=== PATIENT | female | born 1965 | race Caucasian/White ===

== ENCOUNTER 2023-04-19 10:23 | Emergency (ER) | payer BC, OTHER ==
[~2023-04-19] VITALS: Ht 167.6 cm; Wt 73.9 kg
[~2023-04-19 10:23] MED LIST: ALPR0.25 PO; DULO30CA2 PO; LEVO50TA12 PO; META800T85 PO; OMEP20CA15 PO; ONDA8TAB6 PO
[2023-04-19] MEDS ORDERED: MECLIZINE HCL 25 MG TABLET PO ONE (11:00)
[2023-04-19 11:10] LABS: BASOPHILS % (AUTO) 0.5 % (0.0-2.0); EOSINOPHILS # (AUTO) 0.1 K/uL (0.0-0.7); EOSINOPHILS % (AUTO) 1.2 % (0.0-6.0); HEMATOCRIT 38 % (33-45); HEMOGLOBIN 13.1 g/dL (11.5-14.8); LYMPHOCYTES # (AUTO) 2.3 K/uL (0.8-4.8); LYMPHOCYTES % (AUTO) 41.3 % (20.0-44.0); MEAN CORPUSCULAR HEMOGLOBIN 32 PG (26.0-33.0); MEAN CORPUSCULAR HGB CONC 34 g/dl (31.0-36.0); MEAN CORPUSCULAR VOLUME 94 fL (82-100); MONOCYTES # (AUTO) 0.5 K/uL (0.1-1.30); MONOCYTES % (AUTO) 9.6 % (2.0-12.0); NEUTROPHILS # (AUTO) 2.6 K/uL (1.8-8.9); NEUTROPHILS % (AUTO) 47.4 % (43.0-81.0); PLATELET COUNT (AUTO) 269 K/uL (150-450); RED BLOOD CELL COUNT(AUTO) 4.09 MIL/uL (4.0-5.2); RED CELL DISTRIBUTION WIDTH 14.1 % (11.5-15.0); WHITE BLOOD COUNT (AUTO) 5.5 K/uL (4.3-11.0)
[2023-04-19] MEDS ORDERED: MECLIZINE HCL 25 MG TABLET ONE (11:12)
[2023-04-19 11:23] LABS: ALANINE AMINOTRANSFERASE 19 U/L (12-78); ALBUMIN 4.1 g/dL (3.4-5.0); ALKALINE PHOSPHATASE 46 U/L (46-116); ASPARTATE AMINOTRANSFERASE 11 U/L (15-37); BILIRUBIN,DIRECT 0.1 mg/dL (0.0-0.2); BILIRUBIN,TOTAL 0.3 mg/dL (0.2-1.0); CALCIUM, SERUM 9.6 mg/dL (8.5-10.1); CARBON DIOXIDE 25 mmol/L (21-32); CHLORIDE 108 mmol/L (98-107); GLUCOSE 96 mg/dL (74-106); LIPASE 28 U/L (16-77); POTASSIUM 4.1 mmol/L (3.5-5.1); SODIUM SERUM 143 mmol/L (136-145); UREA NITROGEN, BLOOD 8 mg/dL (7-18)
[2023-04-19] MEDS ORDERED: LORAZEPAM INJ 2 MG/ML VIAL ONE (11:51)
[2023-04-19] MEDS ORDERED: LORAZEPAM INJ 2 MG/ML VIAL IV ONE (12:00)
[2023-04-19] MEDS ORDERED: MECL-159 PO (13:20)
[2023-04-19] MEDS ORDERED: KETOROLAC TROMETHAMINE INJ 30 MG/ML VIAL IV ONE (13:30)
[2023-04-19] MEDS ORDERED: ONDANSETRON HCL/PF 4 MG/2 ML VIAL ONE (13:35)
[2023-04-19] MEDS ORDERED: KETOROLAC TROMETHAMINE INJ 30 MG/ML VIAL ONE (13:35)
[2023-04-19] MEDS ORDERED: ONDANSETRON HCL/PF 4 MG/2 ML VIAL IV ONE (14:00)
[2023-04-19 14:25] VITALS: BP 119/81; TEMP 98.3; O2SAT 99
== END 2023-04-19 17:10 | disposition home or self-care (01) ==
LOC: ER 10:25
DX: R42 Dizziness and giddiness (principal); I10 Essential (primary) hypertension; G43.909 Migraine, unspecified, not intractable, without status migrainosus; Z88.0 Allergy status to penicillin; Z88.8 Allergy status to other drugs, medicaments and biological substances
CPT/HCPCS: 99285; 96374; 70450; 71045; 96375; 93005; 85025; 80048; 83690; 80076; 36415; 84484; 83880; 82962; J2060; J1885; J2405; J8597

== ENCOUNTER 2024-04-30 16:27 | Inpatient (IN) | payer BC ==
[~2024-04-30] VITALS: Ht 167.6 cm; Wt 85.3 kg
[~2024-04-30 16:27] MED LIST changes: +MECL-159 PO
[2024-04-30] MEDS ORDERED: KETOROLAC TROMETHAMINE 15 MG/ML VIAL ONE (18:03)
[2024-04-30] MEDS ORDERED: ONDANSETRON HCL/PF 4 MG/2 ML VIAL ONE (18:03)
[2024-04-30 18:23] LABS: BASOPHILS % (AUTO) 0.4 % (0.0-2.0); EOSINOPHILS % (AUTO) 0.5 % (0.0-6.0); HEMATOCRIT 41 % (33-45); HEMOGLOBIN 13.2 g/dL (11.5-14.8); LYMPHOCYTES # (AUTO) 2.9 K/uL (0.8-4.8); LYMPHOCYTES % (AUTO) 32.7 % (20.0-44.0); MEAN CORPUSCULAR HEMOGLOBIN 28 PG (26.0-33.0); MEAN CORPUSCULAR HGB CONC 32 g/dl (31.0-36.0); MEAN CORPUSCULAR VOLUME 86 fL (82-100); MONOCYTES # (AUTO) 0.7 K/uL (0.1-1.30); NEUTROPHILS # (AUTO) 5.1 K/uL (1.8-8.9); NEUTROPHILS % (AUTO) 58.4 % (43.0-81.0); PLATELET COUNT (AUTO) 401 K/uL (150-450); RED BLOOD CELL COUNT(AUTO) 4.78 MIL/uL (4.0-5.2); WHITE BLOOD COUNT (AUTO) 8.8 K/uL (4.3-11.0)
[2024-04-30] MEDS: IV NS 0.9% 1,000 ML BAG IV ONE ×2 (18:25→20:45)
[2024-04-30] MEDS: KETOROLAC TROMETHAMINE 15 MG/ML VIAL IV ONE (18:26)
[2024-04-30] MEDS: ONDANSETRON HCL/PF 4 MG/2 ML VIAL IVP ONE (18:26)
[2024-04-30 18:36] LABS: INR 0.94 (0.91-1.10); PARTIAL THROMBOPLASTIN TIME 21.3 SEC (24.3-34.3); PROTHROMBIN TIME 9.7 SECS (9.2-11.1)
[2024-04-30 18:40] LABS: ALANINE AMINOTRANSFERASE 30 U/L (12-78); ALBUMIN 4.2 g/dL (3.4-5.0); ALKALINE PHOSPHATASE 79 U/L (46-116); ASPARTATE AMINOTRANSFERASE 14 U/L (15-37); BILIRUBIN,DIRECT 0.1 mg/dL (0.0-0.2); BILIRUBIN,TOTAL 0.3 mg/dL (0.2-1.0); CALCIUM, SERUM 9.7 mg/dL (8.5-10.1); CARBON DIOXIDE 28 mmol/L (21-32); CHLORIDE 101 mmol/L (98-107); CREATININE 1.1 mg/dL (0.6-1.3); GLUCOSE 108 mg/dL (74-106); LIPASE 57 U/L (16-77); POTASSIUM 3.7 mmol/L (3.5-5.1); SODIUM SERUM 140 mmol/L (136-145); TOTAL PROTEIN, SERUM 7.6 g/dL (6.4-8.2); UREA NITROGEN, BLOOD 11 mg/dL (7-18)
[2024-04-30 18:55] LABS: LACTIC ACID 4.9 mmol/L (0.4-2.0)
[2024-04-30 18:55] LABS: APPEARANCE,URINE Clear (CLEAR); BILIRUBIN,URINE Negative (NEGATIVE); BLOOD, URINE Negative Ery/uL (NEGATIVE); COLOR,URINE YELLOW (YELLOW); KETONES,URINE Trace mg/dL (NEGATIVE); LEUKOCYTE ESTERASE ,URINE Negative (NEGATIVE); NITRITE, URINE Negative (NEGATIVE); PH,URINE 7.5 (5.0-8.0); PROTEIN,URINE Negative (NEGATIVE); UGLUCOSE Negative (NEGATIVE); UROBILINOGEN,URINE 0.2 EU/dL (0.2)
[2024-04-30 19:04] LABS: ADD URINE CULTURE NO
[2024-04-30] MEDS: MEROPENEM 1 G in IV NS 0.9% 100 ML IV ONE (19:50)
[2024-04-30] MEDS ORDERED: MAGNESIUM HYDROXIDE 30 ML UDC PO PRN (21:00)
[2024-04-30] MEDS ORDERED: ACETAMINOPHEN 325 MG TABLET PO PRN (21:00)
[2024-04-30] MEDS ORDERED: MAG HYDROX/AL HYDROX/SIMETH 30 ML UDC PO PRN (21:00)
[2024-04-30] MEDS ORDERED: Z GUARD REMEDY 4 OZ OINT TP PRN (21:00)
[2024-04-30] MEDS ORDERED: ONDANSETRON HCL/PF 4 MG/2 ML VIAL IVP PRN (21:00)
[2024-04-30] MEDS ORDERED: DILT30TA14 PO (22:43)
[2024-04-30] MEDS ORDERED: ROSU5TAB PO (22:43)
[2024-04-30] MEDS ORDERED: METO25TA6 PO (22:43)
[2024-04-30] MEDS ORDERED: LAMO100T17 PO (23:11)
[2024-04-30] MEDS ORDERED: DIVA250T PO (23:11)
[2024-04-30] MEDS ORDERED: LEVO75TA7 PO (23:11)
[2024-04-30] MEDS ORDERED: VALA100026 PO (23:11)
[2024-04-30] MEDS ORDERED: METO25TA20 PO (23:11)
[2024-04-30] MEDS ORDERED: RABE20TA18 PO (23:11)
[2024-04-30] MEDS ORDERED: FLUO10CA26 PO (23:11)
[2024-04-30] MEDS ORDERED: Fluoxetine 10 mg capsule PO SCH (23:30)
[2024-04-30] MEDS ORDERED: DIVALPROEX SODIUM 250 MG PO SCH (23:30)
[2024-04-30] MEDS: Fluoxetine 10 mg capsule PO ONE (23:44)
[2024-04-30] MEDS: DIVALPROEX SODIUM 250 MG TABLET.DR PO ONE (23:45)
[2024-04-30] MEDS: METOPROLOL TARTRATE 25 MG TABLET PO ONE (23:45)
[2024-05-01] VITALS: BP 138/81; TEMP 98.3; O2SAT 97
[2024-05-01 04:00] VITALS: BP 125/68; TEMP 98.2; O2SAT 97
[2024-05-01] MEDS: MORPHINE SULFATE INJ 2 MG/ML DISP.SYRIN IV PRN (05:42)
[2024-05-01 07:13] LABS: CALCIUM, SERUM 9.4 mg/dL (8.5-10.1); CREATININE 0.9 mg/dL (0.6-1.3); MAGNESIUM 2.1 mg/dL (1.8-2.4); PHOSPHORUS 4.4 mg/dL (2.5-4.9); POTASSIUM 4.4 mmol/L (3.5-5.1)
[2024-05-01 07:19] LABS: LACTIC ACID 1.1 mmol/L (0.4-2.0)
[2024-05-01 08:00] VITALS: BP 116/68; TEMP 98; O2SAT 97
[2024-05-01] MEDS: LEVOTHYROXINE SODIUM 75 MCG TABLET PO SCH (08:00)
[2024-05-01] MEDS: PANTOPRAZOLE 40 MG TABLET.DR PO SCH (08:00)
[2024-05-01] MEDS: LamoTRIgine 100 MG TABLET PO SCH (08:45)
[2024-05-01] MEDS: DILTIAZEM HCL 30 MG TABLET PO SCH (08:45)
[2024-05-01 09:52] LABS: BASOPHILS % (AUTO) 0.6 % (0.0-2.0); EOSINOPHILS # (AUTO) 0.1 K/uL (0.0-0.7); EOSINOPHILS % (AUTO) 1.5 % (0.0-6.0); HEMATOCRIT 34 % (33-45); HEMOGLOBIN 11.3 g/dL (11.5-14.8); LYMPHOCYTES # (AUTO) 1.9 K/uL (0.8-4.8); LYMPHOCYTES % (AUTO) 48.5 % (20.0-44.0); MEAN CORPUSCULAR HEMOGLOBIN 28 PG (26.0-33.0); MEAN CORPUSCULAR HGB CONC 33 g/dl (31.0-36.0); MEAN CORPUSCULAR VOLUME 84 fL (82-100); MONOCYTES # (AUTO) 0.4 K/uL (0.1-1.30); MONOCYTES % (AUTO) 9.2 % (2.0-12.0); NEUTROPHILS # (AUTO) 1.6 K/uL (1.8-8.9); NEUTROPHILS % (AUTO) 40.2 % (43.0-81.0); PLATELET COUNT (AUTO) 315 K/uL (150-450); RED BLOOD CELL COUNT(AUTO) 4.09 MIL/uL (4.0-5.2); RED CELL DISTRIBUTION WIDTH 16.3 % (11.5-15.0); WHITE BLOOD COUNT (AUTO) 3.9 K/uL (4.3-11.0)
[2024-05-01 10:34] LABS: THYROID STIMULATING HORMONE 0.63 uIU/mL (0.358-3.74)
[2024-05-01] MEDS: LORAZEPAM INJ 2 MG/ML VIAL IV ONE (11:15)
[2024-05-01 12:00] VITALS: BP 133/77; TEMP 98.1; O2SAT 97
[2024-05-01 16:00] VITALS: BP 123/68; TEMP 98; O2SAT 96
[2024-05-01 20:00] VITALS: BP 127/62; TEMP 97.8; O2SAT 93
[2024-05-01] MEDS ORDERED: Medication Not On Formulary EA (Rosuvastatin Calcium (Crestor) 5 MG) PO SCH (22:00)
[2024-05-01] MEDS ORDERED: Medication Not On Formulary EA (Valacyclovir Hcl (Valacyclovir) 1,000 MG) PO SCH (22:00)
[2024-05-01] MEDS: VALACYCLOVIR HCL 500 MG TABLET PO SCH (22:08)
[2024-05-01] MEDS: ATORVASTATIN 10 MG TABLET PO SCH (22:08)
[2024-05-02 04:05] VITALS: BP 104/59; TEMP 98.1; O2SAT 97
[2024-05-02 06:11] LABS: FOLIC ACID 12.6 ng/mL (>3.0)
[2024-05-02 07:57] LABS: CHOLESTEROL 160 mg/dL (<200); HDL CHOLESTEROL 59 mg/dL (40-60); LDL 71 mg/dL (0-99); TRIGLYCERIDES 167 mg/dL (30-150)
[2024-05-02 08:00] VITALS: BP 134/70; TEMP 97.6; O2SAT 100
[2024-05-02] MEDS ORDERED: ASPI-1420 PO (08:54)
[2024-05-02] MEDS ORDERED: ASPI-1169 PO (11:47)
[2024-05-02] MEDS ORDERED: HYDR-3895 PO (11:47)
[2024-05-02] MEDS ORDERED: HYDR-3972 PO (11:47)
[2024-05-02 12:18] VITALS: BP 137/54
== END 2024-05-02 14:22 | disposition home health service (06) | DRG 641 ==
LOC: ER 16:36 → MEDSG1 20:10 → TELE1 23:21 → MEDSG1 05-01 13:45
PROVIDERS: ADMIT Nurse Practitioner Family; ATTEND Internal Medicine
DX: E86.0 Dehydration (principal); E87.20 Acidosis, unspecified; R73.9 Hyperglycemia, unspecified; K31.84 Gastroparesis; I10 Essential (primary) hypertension; Z98.890 Other specified postprocedural states; G43.909 Migraine, unspecified, not intractable, without status migrainosus; E78.5 Hyperlipidemia, unspecified; K44.9 Diaphragmatic hernia without obstruction or gangrene; Z88.1 Allergy status to other antibiotic agents; Z88.0 Allergy status to penicillin; Z88.8 Allergy status to other drugs, medicaments and biological substances; E03.9 Hypothyroidism, unspecified; F41.9 Anxiety disorder, unspecified; Z79.890 Hormone replacement therapy; Z79.899 Other long term (current) drug therapy; F29 Unspecified psychosis not due to a substance or known physiological condition; E66.3 Overweight; Z68.30 Body mass index [BMI] 30.0-30.9, adult; F31.9 Bipolar disorder, unspecified; K58.9 Irritable bowel syndrome, unspecified
CPT/HCPCS: 36415; 70450-TC; 70551-TC; 71045-TC; 80048-TC; 80061-TC; 80076-TC; 80164-TC; 81001; 82607-TC; 83605-TC; 83690-TC; 83735-TC; 83921; 84100-TC; 84425; 84443-TC; 84484-TC; 85025-TC; 85730-TC; 87040-TC; 93307-TC; 93880-TC; G0378; J1885; J2060; J2185; J2270; J2405; J7030